=== PATIENT | female | born 1980 | race Caucasian/White ===

== ENCOUNTER 2021-05-17 11:21 | Emergency (ER) | payer BC, SELFPAY ==
--- NOTE | 2021-05-17 11:30 | ED.GENADULT ---
HPI - General Adult General Chief complaint: Back Pain/Injury Stated complaint: back pain Time Seen by Provider: 05/17/21 11:30 Source: patient Mode of arrival: ambulatory Limitations: no limitations History of Present Illness HPI narrative: 41-year-old female patient presents to the [facility] with complaints of lower back pain that started yesterday. Patient states that she was just walking around the house picking up something bending over at times and felt a little soreness to the back however got increasingly worse yesterday. Patient states she did take 600 mg of Advil yesterday afternoon and again 800 mg of Advil last night which she does not feel like is helping. Patient states today the pain is increasingly worse to the point that she has to have her help her up to a standing position. Patient denies any specific injury or falling. Patient states she has had back issues before including sciatica and bulging disc. Patient denies any numbness or tingling down the legs and denies any loss of bowel or bladder control. Related Data Allergies Allergy/AdvReac Type Severity Reaction Status Date / Time No Known Allergies Allergy Verified 05/17/21 11:31 Review of Systems Review of Systems: CONSTITUTIONAL: Denies fever, chills, or sweats. EYES: Denies visual changes, redness, or discharge. ENT: Denies rhinorrhea, congestion, sore throat, or otalgia. CARDIOVASCULAR: Denies chest pain, palpitations, or edema. RESPIRATORY: Denies cough or dyspnea. GASTROINTESTINAL: Denies abdominal pain, nausea, vomiting, or diarrhea. GENITOURINARY: Denies dysuria or hematuria. SKIN: Denies rash or itching. MUSCULOSKELETAL: Positive low back pain, denies joint pain, or myalgia. NEUROLOGIC: Denies headache, numbness, or weakness. PSYCHIATRIC: Denies anxiety or depression. [facility] Past Medical History Medical History (Updated 05/17/21 @ 11:53 by MARY Garza) Diabetes mellitus HLD (hyperlipidemia) Hypothyroidism Surgical History Surgical History Hx of cholecystectomy (~2012) Family History Family History Mother Cerebrovascular accident Family history of diabetes mellitus in first degree relative Family history of dementia Sibling Family history of diabetes mellitus in first degree relative Other Diabetes mellitus Family history of gallbladder disease Social History Social History Years smoked: 20 Tobacco type: cigarettes Alcohol intake: current Alcohol use details: social Substance use: never Gender identity (if verbalized by the patient): Female Comments At the time of my signature I agree with nursing past medical history, surgical, social, and family history. There is no relevant family history pertinent to the presenting complaint. Exam Narrative: GENERAL: Well-appearing, well-nourished, and in no acute distress. HEAD: Normocephalic, atraumatic. EYES: PERRLA and EOMI. ENT: Nares clear, no rhinorrhea or epistaxis. Mucous membranes moist. NECK: Supple. No lymphadenopathy CHEST: Clear to auscultation. No respiratory distress. HEART: Regular rate and rhythm. No murmur heard. Normal peripheral pulses. ABDOMEN: Soft, nontender, nondistended, normal active bowel sounds. EXTREMITIES: Normal range of motion. No edema. BACK: Patient is able to ambulated without assistance. Pt is seated on the stretcher in no obvouis distress. No surface trauma noted. muscle tenderness to Palpation of the lumbar spine on bilateral sides and into the sciatic nerve area on bilateral sides. No spasm or mass. No step-offs or deformity noted to the cervical, thoracic or lumbar spine to firm Palpation at the midline. No CVA tenderness to percussion. No saddle anesthesia. ROM: able to stand erect. Normal flexion, extension, Lateral bending and rotation without limit
[2021-05-17 11:35] VITALS: BP 138/72; PULSE 92; RESP 20; TEMP 36.1; O2SAT 100
== END 2021-05-17 12:00 | disposition home or self-care (01) ==
PROVIDERS: Emergency Provider Nurse Practitioner Family; PCP Family Medicine
DX: M54.31 Sciatica, right side (principal); F17.210 Nicotine dependence, cigarettes, uncomplicated; E11.9 Type 2 diabetes mellitus without complications; E78.5 Hyperlipidemia, unspecified; E03.9 Hypothyroidism, unspecified
CPT/HCPCS: 99213; G0463

== ENCOUNTER 2022-04-15 16:25 | Outpatient (CLI) | payer BC, SELFPAY ==
--- NOTE | ~2022-04-15 | MM_ITS ---
EXAMINATION: MM screening don BI w errol HISTORY: Screening TECHNIQUE: Craniocaudal and mediolateral oblique 3-D tomosynthesis images were obtained and synthetic 2-D images were generated. CAD analysis was submitted and interpreted. COMPARISON: No prior mammogram is available for comparison at this institution. BREAST PARENCHYMAL COMPOSITION: There are scattered areas of fibroglandular density. FINDINGS: There are no suspicious masses, calcifications or architectural distortion in the right dale ast to suggest malignancy. There is a mass in the subareolar location of the left breast measuring ap proximately 12 mm maximum dimension. IMPRESSION: 1. Left breast mass in the subareolar location. 2. Additional mammographic views and possible breast ultrasound are recommended. BI-RADS Category 0: Incomplete: Needs additional imaging evaluation. Reviewed, dictated and finalized at location A. IMPRESSION: 1. Left breast mass in the subareolar location. 2. Additional mammographic views and possible breast ultrasound are recommended . BI-RADS Category 0: Incomplete: Needs additional imaging evaluation.
== END 2022-04-15 16:26 | disposition home or self-care (01) ==
PROVIDERS: PCP Family Medicine; Visit Provider Obstetrics & Gynecology
DX: Z12.31 Encounter for screening mammogram for malignant neoplasm of breast (principal); R92.8 Other abnormal and inconclusive findings on diagnostic imaging of breast
CPT/HCPCS: 77063; 77067

== ENCOUNTER 2022-05-07 13:41 | Outpatient (CLI) | payer BC, SELFPAY ==
--- NOTE | ~2022-05-07 | MMUS_ITS ---
EXAMINATION: MM diagnostic don LT w errol, US breast LT limited HISTORY: Approximately 12 mm subareolar mass reported on 04/15/2022 screening mammogram TECHNIQUE: Additional 3-D tomosynthesis images of the left breast were performed and synthetic 2-D im ages were generated. CAD analysis was submitted and interpreted. High resolution targeted subareolar left breast ultrasound was performed. COMPARISON: 04/15/2022 bilateral screening mammogram FINDINGS: MAMMOGRAPHIC FINDINGS: There is a circumscribed approximately 6 x 10 mm low-density opacity in the upper subareolar area of the left breast at 12:00. ULTRASOUND: There is a 4 x 9 x 10 mm sonolucency in the subareolar area, consistent with simple cyst. IMPRESSION: 1. Benign subareolar 1 cm cyst 2. Routine mammographic screening is recommended BI-RADS Category 2: Benign finding(s). Reviewed, dictated and finalized at location A. IMPRESSION: 1. Benign subareolar 1 cm cyst 2. Routine mammographic screening is recommended BI-RADS Category 2: Benign finding(s).
== END 2022-05-07 13:42 | disposition home or self-care (01) ==
PROVIDERS: PCP Family Medicine; Visit Provider Obstetrics & Gynecology
DX: R92.8 Other abnormal and inconclusive findings on diagnostic imaging of breast (principal)
CPT/HCPCS: 76642; 77061; 77065; G0279

== ENCOUNTER 2024-01-30 12:39 | Outpatient (CLI) | payer BC, SELFPAY ==
--- NOTE | ~2024-01-30 | XR_ITS ---
Lumbosacral Spine: AP, oblique, and lateral views Clinical History: Pain Findings: The normal lordotic curve is maintained. The vertebral bodies and posterior elements are i ntact. The intervertebral disc spaces are preserved. The sacroiliac joints are normally outlined. Impression: No significant abnormality. Reviewed, dictated and finalized at [facility]. Impression: No significant abnormality.
--- NOTE | 2024-01-30 13:04 | ECG_ITS ---
Test Date: 2024-01-30 13:10:46 Measurements Intervals [place] Rate: 87 P: -2 VA: 139 QRS: -13 QRSD: 97 T: 10 QT: 374 QTc: 451 Interpretive Statements SINUS RHYTHM No previous ECG available for comparison Electronically Signed On 01-31-2024 10:43:08 CDT by Vazquez Waggoner M.D.
== END 2024-01-30 12:40 | disposition home or self-care (01) ==
PROVIDERS: PCP Family Medicine; Visit Provider Physician Assistant Medical
DX: E03.9 Hypothyroidism, unspecified (principal); E78.5 Hyperlipidemia, unspecified; E11.9 Type 2 diabetes mellitus without complications
CPT/HCPCS: 72110; 93005

== ENCOUNTER 2025-07-26 18:19 | Emergency (ER) | payer BC, SELFPAY ==
--- NOTE | ~2025-07-26 | XR_ITS ---
XR knee LT 3V 07/26/2025 18:44 Indication: Left knee pain Procedure: 3 views left knee Comparison: No prior studies for comparison. Findings: Osteopenia. Unfused tibial tuberosity. No acute fracture, subluxation or dislocation. No significant joint effusion. No foreign bodies. Impression: 1: No acute fracture. Reviewed, dictated and finalized at location I. EATION COORDINATOR Impression: 1: No acute fracture.
--- NOTE | ~2025-07-26 | XR_ITS ---
XR wrist RT min 3V 07/26/2025 18:44 Indication: Right wrist pain Procedure: 4 views right wrist Comparison: No prior studies for comparison. Findings: There is an ulnar styloid avulsion fracture, age indeterminate. No other fracture. Anatomic alignment. No soft tissue abnormality. No foreign bodies. Impression: 1: Age-indeterminate avulsion fracture ulnar styloid. Correlate for point tenderness. Reviewed, dictated and finalized at location I. ET STRINGER Impression: 1: Age-indeterminate avulsion fracture ulnar styloid. Correlate for point tende rness.
[2025-07-26 18:32] VITALS: BP 128/81; PULSE 65; RESP 16; TEMP 36.5; O2SAT 98
--- NOTE | 2025-07-26 19:41 | ED.FALL ---
HPI - Fall General Chief Complaint: Extremity Injury, Lower Stated Complaint: INJURED L KNEE Time Seen by Provider: 07/26/25 19:25 Source: patient and RN notes reviewed Mode of arrival: ambulatory Limitations: no limitations History of Present Illness HPI Narrative: 45-year-old female presents Express Care complaining of fall approximately 5 days ago. Patient says she slipped and fell on the ice. Patient is in her head or any loss of consciousness. Patient denies any neck pain or back pain. Patient is complaining of left knee pain and right wrist pain. Patient denies any dizziness, lightheadedness, nausea vomiting, chest pain, breathing problems, vision changes, double vision, blurry vision, in her symptoms. Patient or a knee brace without relief. Patient is not taking any blood thinners. Patient does have a history of diabetes. Related Data Home Medications ?Medication ?Instructions ?Recorded ?Confirmed ?Last Taken ?Type Saccharomyces boulardii 250 mg 250 mg PO BID 09/13/24 01/07/25 Unknown History capsule (Daily Probiotic (S. boulardii)) cholecalciferol (vitamin D3) 125 125 mcg PO DAILY 09/13/24 01/07/25 Unknown History mcg (5,000 unit) capsule cyanocobalamin (vitamin B-12) 5,000 mcg sublingual DAILY 09/13/24 01/07/25 Unknown History 5,000 mcg/mL sublingual drops magnesium citrate,mag oxide 250 mg 500 mg PO DAILY 09/13/24 01/07/25 Unknown History capsule psyllium husk 3.4 gram/5.4 gram 1 tbsp PO DAILY 09/13/24 01/07/25 Unknown History oral powder (Metamucil) levothyroxine 100 mcg tablet mcg 07/26/25 Unknown History levothyroxine 112 mcg tablet mcg 07/26/25 Unknown History rosuvastatin 20 mg tablet mg 07/26/25 Unknown History terbinafine HCl 250 mg tablet mg 07/26/25 Unknown History tirzepatide 7.5 mg/0.5 mL mg subcut 07/26/25 Unknown History subcutaneous pen injector (Mounjaro) Allergies Allergy/AdvReac Type Severity Reaction Status Date / Time No Known Allergies Allergy Verified 07/26/25 18:34 Review of Systems Review of Systems: CONSTITUTIONAL: Denies fever, chills, or sweats. EYES: Denies visual changes, redness, or discharge. ENT: Denies rhinorrhea, congestion, sore throat, or otalgia. CARDIOVASCULAR: Denies chest pain, palpitations, dizziness, lightheadedness or edema. RESPIRATORY: Denies cough or dyspnea. GASTROINTESTINAL: Denies abdominal pain, nausea, vomiting, or diarrhea. GENITOURINARY: Denies dysuria or hematuria. SKIN: Denies rash, wound, or itching. MUSCULOSKELETAL: Denies back pain, joint pain, or myalgia. Positive for left knee injury and right wrist injury NEUROLOGIC: Denies headache, loss of consciousness, or weakness. PSYCHIATRIC: Denies anxiety or depression. All other systems reviewed are negative, except as documented in HPI. [facility] Past Medical History Medical History Gastroparesis Hypothyroidism HLD (hyperlipidemia) Diabetes mellitus Surgical History Surgical History Hx of cholecystectomy (~2012) Family History Family History Mother Cerebrovascular accident Family history of diabetes mellitus in first degree relative Family history of dementia Sibling Family history of diabetes mellitus in first degree relative Other Cervical cancer Lung cancer Other Diabetes mellitus Family history of gallbladder disease Social History Social History Smoking packs per day: 0.5 Smoking cigarettes per day: 10.0 Years smoked: 15 Smoking pack-years: 7.50 Smoking status: Former smoker Tobacco type: cigarettes Second hand tobacco smoke exposure: Yes Smoking end date: 02/21/22 Alcohol intake: current Alcohol use details: social Substance use: never Substance use type: does not use Lack of Transportation: No Lack of Food: Never True Current Housing: Decline to Answer Concerned About Future Housing: Decline to Answer Difficulty Paying Gas/Electric Bills: Decline to Answer Difficulty Paying for Meds: Decline to Answer Currently Unemployed: Decline to Answer Education: Decline to Answer Difficulty w/ Childcare or Family Care: Decline to Answer Living arrangements: with family Gender identity (if verbalized by the patient): Female Comments At the time of my signature, I reviewed and agree with the nursing past medical, surgical, social, and family history. There is no relevant family history pertinent to the patient complaint. Exam Narrative: GENERAL: This is a well-nourished, well-developed adult, in no apparent distress. They are non ill-appearing, nontoxic appearing. HEAD: normocephalic, atraumatic. EYES: Sclera clear/white. Vision is grossly intact. Conjunctiva normal. Extraocular movement intact. Pupils PERRLA EARS: External ears normal Hearing grossly intact. NOSE: External nose normal THROAT: Mucous membranes moist NECK: Neck supple CARDIOVASCULAR: Regular rate and rhythm RESPIRATORY: Respiratory rate normal, respiratory effort nonlabored, no respiratory distress NEURO: awake, alert, and oriented to person, place and time. There were no obvious focal neurologic abnormalities. EXTREMITIES: Left knee: No obvious deformity, injury, swelling, bruising, redness. Pain through full range of motion. No bony tenderness. Capillary refill less than 3 seconds. No valgus or varus laxity. Normal sensation. Neurovascular status intact distal injury. Right wrist: No obvious deformity, bruising, redness, swelling, or injury. Lateral rest tender to palpate. No point tenderness near the ulnar styloid. Her snuffbox tenderness. There is pain through full range of motion. Capillary refill less than 2 seconds. Sensation intact. Patient make a fist, thumbs-up sign, stop sign, okay sign. Right radial pulse 2 +and palpable. Radial, ulnar, median nerve distribution intact. Neurovascular status intact distally the injury. BACK: Nontender without deformity. Course Course Level of Care: Express Care Visit Vital Signs Vital signs: Vital Signs Temperature 97.7 F 07/26/25 18:32 Pulse Rate 65 07/26/25 18:32 Respiratory Rate 16 07/26/25 18:32 Blood Pressure 128/81 07/26/25 18:32 Pulse Oximetry 98 07/26/25 18:32 Temperature 97.7 F 07/26/25 18:32 Pulse Rate 65 07/26/25 18:32 Respiratory Rate 16 07/26/25 18:32 Blood Pressure 128/81 07/26/25 18:32 Pulse Oximetry 98 07/26/25 18:32 Procedures Orthopedic Splinting/Casting Injury #1: Splinting/Casting Date: 07/26/25 Splinting/Casting Time: 19:49 Side: right Upper Extremity Injury Location: wrist (Ulnar styloid) and hand (Scaphoid) Splint: customized in ED Pre-Formed: sling OCL: other (Thumb spica sugar-tong) Pre-Procedure Neuro Vascular Exam: normal Post-Procedure Neuro Vascular Exam: normal Additional Comments: Patient tolerated procedure well MDM MDM Narrative Medical decision making narrative: X-ray of right wrist shows a avulsion fracture age indeterminate to the ulna styloid. Otherwise no other acute findings. X-ray of left knee negative for any acute fractures or findings. Patient also has snuffbox tenderness., there is clinical concern for scaphoid fracture given these findings. There is no focal tenderness near the ulnar styloid area. Will place patient in a sugar-tong thumb spica splint have follow-up with ortho for further evaluation. Patient given Rickey wrap for knee. Discussed supportive care and rice therapy. Discussed physical exam findings. Advised supportive measures and signs/symptoms to go to the ER. Pt is appropriate for outpt treatment and f/u. Differential Diagnosis Differential Diagnosis: Wrist fracture, wrist sprain, wrist contusion, scaphoid fracture, the fracture, knee sprain company contusion Imaging Data Radiologist's impression: ITS Impressions Knee X-Ray 07/26/25 18:50 Impression: 1: No acute fracture. Wrist X-Ray 07/26/25 18:51 Impression: 1: Age-indeterminate avulsion fracture ulnar styloid. Correlate for point tenderness. Critical Care Time Critical Care Time Critical Care Time: No Discharge Plan Discharge Clinical Impression: Tenderness of anatomical snuffbox Fracture of ulnar styloid Qualifiers: Encounter type: initial encounter Fracture type: closed Fracture alignment: nondisplaced Laterality: right Qualified Code(s): S52.614A - Nondisplaced fracture of right ulna styloid process, initial encounter for closed fracture Injury of knee, left Qualifiers: Encounter type: initial encounter Qualified Code(s): S89.92XA - Unspecified injury of left lower leg, initial encounter Fall Qualifiers: Encounter type: initial encounter Qualified Code(s): W19.XXXA - Unspecified fall, initial encounter Patient Disposition: Home Condition: Stable Instructions: Knee Sprain (ED), Wrist Fracture in Adults (ED), Scaphoid Fracture (ED) Additional Instructions: The x-ray of your right wrist shows a avulsion fracture of the ulna styloid, could be old, given the tenderness near scaphoid bone going to treat as if you have a scaphoid fracture as well. Wear the splint at all times, keep it dry, do not remove it, do not get it wet. Please cover while showering. Use the sling as needed for comfort. You may take ibuprofen 600 mg to 800 mg every 6-8 hours. Do not exceed more than 800 mg of ibuprofen per dose. Do not exceed more than 3200 mg ibuprofen in a day. You may take up to 1000 mg Tylenol every 6-8 hours. Do not exceed 1000 mg per dose, do exceed more than 4000 mg of Tylenol in a day. Follow-up with orthopedist in 3-5 days for further evaluation management. Return to the ER for any serious concerns. Patient Language: Sri [place]an Prescriptions: No Action levothyroxine 100 mcg tablet terbinafine HCl 250 mg tablet levothyroxine 112 mcg tablet rosuvastatin 20 mg tablet Mounjaro 7.5 mg/0.5 mL pen injector SUBCUT insulin glargine [Basaglar KwikPen U-100 Insulin] 100 unit/mL (3 mL) insulin pen 32 unit subcut QAM Qty: 30 6RF insulin aspart U-100 [Novolog FlexPen U-100 Insulin] 100 unit/mL (3 mL) insulin pen 6 unit subcut TID Qty: 15 1RF Rx Instructions: before meals (DME) lancets [Accu-Chek Softclix Lancets] Misc See Rx Instructions .Route Qty: 100 0RF Rx Instructions: Check blood sugar daily gabapentin 300 mg capsule 300 mg PO QHS Qty: 30 0RF omeprazole 40 mg capsule,delayed release(DR/EC) 40 mg PO DAILY Qty: 30 1RF (DME) blood-glucose meter [Accu-Chek Guide Glucose Meter] Misc See Rx Instructions .Route Qty: 1 0RF Rx Instructions: Check blood sugar daily (DME) Accu-Chek SmartView Test Strip Strip See Rx Instructions .Route Qty: 100 6RF Rx Instructions: check blood sugar three times daily (DME) blood-glucose meter [Accu-Chek Guide Glucose Meter] Misc See Rx Instructions .Route Qty: 1 0RF Rx Instructions: Check blood glucose 5 x daily (DME) Accu-Chek Guide test strips Strip See Rx Instructions .Route Qty: 100 3RF Rx Instructions: Check blood glucose 5 x daily cholecalciferol (vitamin D3) 125 mcg (5,000 unit) capsule 125 mcg PO DAILY Saccharomyces boulardii [Daily Probiotic (S. boulardii)] 250 mg capsule 250 mg PO BID cyanocobalamin (vitamin B-12) 5,000 mcg/mL drops 5,000 mcg sublingual DAILY Metamucil 3.4 gram/5.4 gram powder 1 tbsp PO DAILY Rx Instructions: mix into at least 8 oz of water or juice before administering magnesium citrate,mag oxide 250 mg capsule 500 mg PO DAILY ergocalciferol (vitamin D2) 1,250 mcg (50,000 unit) capsule 1,250 mcg PO WEEKLY Qty: 14 3RF (DME) pen needle, diabetic [Comfort EZ Pen Preston] 31 gauge x 3/16 needle See Rx Instructions .Route Qty: 400 3RF Rx Instructions: As directed QID ondansetron HCl 8 mg tablet 8 mg PO Q8H PRN (Reason: nausea and vomiting) Qty: 20 0RF duloxetine 30 mg capsule,delayed release(DR/EC) 30 mg PO DAILY Qty: 30 3RF Rx Instructions: Take with evening meal. ferrous sulfate 325 mg (65 mg iron) tablet 325 mg PO DAILY Qty: 90 3RF (DME) FreeStyle Lazara 3 Plus Sensor Device See Rx Instructions .Route Qty: 2 12RF Rx Instructions: USE QID dextroamphetamine-amphetamine [Adderall XR] 30 mg capsule,extended release 24hr 30 mg PO DAILY Qty: 30 0RF Follow-up/Referrals: Chris Greenwood MD [Physician, Plastic Surgery] - 3 Days Clinical Impression: Tenderness of anatomical snuffbox; Fracture of ulnar styloid Clay Montes MD [Physician, Orthopedics] - 3 Days Clinical Impression: Tenderness of anatomical snuffbox; Fracture of ulnar styloid UNKNOWN,DOCTOR [Primary Care Provider] Time of Disposition: 19:37
== END 2025-07-26 20:03 | disposition home or self-care (01) ==
DX: S52.614A Nondisplaced fracture of right ulna styloid process, initial encounter for closed fracture (principal); W00.9XXA Unspecified fall due to ice and snow, initial encounter; S89.92XA Unspecified injury of left lower leg, initial encounter; M79.641 Pain in right hand; E03.9 Hypothyroidism, unspecified; E11.43 Type 2 diabetes mellitus with diabetic autonomic (poly)neuropathy; K31.84 Gastroparesis; Z79.4 Long term (current) use of insulin; Z79.85 Long-term (current) use of injectable non-insulin antidiabetic drugs; E78.5 Hyperlipidemia, unspecified; Z87.891 Personal history of nicotine dependence
CPT/HCPCS: 29125; 73110; 73562; 99214; A4565; G0463

== ENCOUNTER 2025-08-12 13:53 | Outpatient (CLI) | payer BC, SELFPAY ==
--- OUTSIDE RECORDS SUMMARY | 2024-12-13 02:30 | XMS_ITS ---
Author Organization [employer] Address [address] [facility] 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 Steel Fixer Name Role Phone Kendra Thurston MD Primary Care Provider Jus Gregorio Unavailable [phone] REASON FOR VISIT 5ft9 211 Diarrhea abd pain Encounters Encounter Location Date Provider Diagnosis [facility] [address] [place] [address] 12/13/2024 Jus Dee Plan Of Treatment No Information Progress Notes * Naty WOODRUFF MDOB:10/1979 (45 yo F)Acc No.[id number]:12/13/2024 Patient: Tania Naty SHARMA Provider: Elaine Dee MD :1980 A ge:44 Y S ex:Female Date:12/13/2024 Address:[address] [facility] Pcp:Kendra Thurston MD Subjective: * Chief Complaints: * 1 . 5ft9 211 Diarrhea abd pain. * Medical History: Objective: * Vitals: Assessment: Plan: * Treatment: * * Electronic signature of Ally Dee MD on 08/12/2025 at 03:41 PM CERTIFIED MEDICAL ASST Sign off status: Pending * Provider: Elaine Dee MD Date: 0 12/13/2024 Generated for Hina zapien/Ruy/Lelo on: 1 10/13/2024 03:41 PM CERTIFIED MEDICAL ASST
--- OUTSIDE RECORDS SUMMARY | 2024-12-13 07:30 | XMS_ITS ---
Author Organization [employer] [facility] Address [address] [facility] [address] [place] [address] Care Team Providers Care Employment Educational Coord Name Role Phone Kendra Thurston MD Primary Care Provider Jus Gregorio Unavailable [phone] REASON FOR VISIT 5ft9 211 Diarrhea/abd pain/Dysphagia Encounters Encounter Location Date Provider Diagnosis [facility] [address] [place] [address] 12/13/2024 Jus Dee Plan Of Treatment No Information Progress Notes * Naty WOODRUFF MDOB:10/1979 (45 yo F)Acc No.[id number]:12/13/2024 Patient: Tania Naty SHARMA Provider: Elaine Dee MD :1980 A ge:44 Y S ex:Female Date:12/13/2024 Address:[facility] [facility] Pcp:Kendra Thurston MD Subjective: * Chief Complaints: * 1 . 5ft9 211 Diarrhea/abd pain/Dysphagia. 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
--- NOTE | ~2025-08-12 | XR_ITS ---
EXAMINATION: XR hand RT min 3V DATE: 08/12/2025 14:07 INDICATION: Right hand pain TECHNIQUE: Posteroanterior, oblique and lateral views of the right hand were obtained. COMPARISON: Right wrist radiographs dated 07/26/2025 FINDINGS: Fiberglas splinting along the volar and radial aspects of the right hand, wrist and visualized distal forearm. Unchanged 2 mm ulnar minus variance. Alignment is otherwise normal. Tiny calcific density near the tip of the ulnar styloid process which on the prior study. Relatively round and without acute appearing donor site and would favor either a chronic tiny nonunited avulsion fracture fragment or heterotopic ossification related to chronic soft tissue injury. No other lesions suspicious for fracture identified. Joint spaces are normal. IMPRESSION: 1. Unchanged tiny ossific density near the tip the ulnar styloid process consistent with avulsion fracture, more likely chronic than acute. Differential would include heterotopic ossicle related to chronic soft tissue injury. Reviewed, dictated and finalized at location A. [facility]CR[facility]ER IMPRESSION: 1. Unchanged tiny ossific density near the tip the ulnar styloid process consis tent with avulsion fracture, more likely chronic than acute. Differential would include heterotopic ossicle related to chronic soft tissue injury.
--- OUTSIDE RECORDS SUMMARY | 2025-08-12 15:41 | XMS_ITS | Clinical Summary ---
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
--- OUTSIDE RECORDS SUMMARY | 2025-08-12 15:41 | XMS_ITS | Encounter Summary ---
Author Organization [facility] Address [address] [place] [address] Phone Care Team Providers Care Chaplain Name Role Phone Unknown, Notinfile Primary Care Provider Unavail able Kendra Thurston MD Primary Care Provider [phone] Encounter Details Date Type Department Care Team (Latest Contact Info) Description 01/30/2024 Orders Only [facility] Tere Snider RN Social History Tobacco Use Types Packs/Day Years Used Date Smoking Tobacco: Smoker, Current Status Unknown Cigarettes Alcohol Use Standard Drinks/Week Comments Yes 0 (1 standard drink = 0.6 oz pur e alcohol) Socially Comments Unknown Sex and Gender Information Value Date Recorded Sex Assigned at Not on file 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 Gender Identity Not on file Sexual Orientation Not on file documented as of this encounter Plan of Treatment Not on file documented as of this encounter Procedures Procedure Name Priority Date/Time Associated Diagnosis Comments CARDIOLOGY DOCUMENT SCAN 01/30/2024 documented in this encounter Results * Cardiology Document Scan (01/30/2024) Anatomical Region Laterality Modality Other Tere Snider RN [facility] HERLINDA Johnson Result - Final documented in this encounter Visit Diagnoses Not on filedocumented in this encounter Care Teams Chaplain Relationship Specialty Start Date End Date Unknown, Notinfroxana PCP - General 01/09/18 03/08/24 Kendra Thurston MD PCP - General Family Medicine 03/09/24 documented as of this encounter
--- OUTSIDE RECORDS SUMMARY | 2025-08-12 15:42 | XMS_ITS | Clinical Summary ---
Author Organization [facility] [employer] [facility] Address [address] [place] [address] Care Team Providers Care Psych Np Name Role Phone Yony Hoff MD Primary Care Provider [phone] Source Comments [facility] [employer] [facility],non-owned Affiliates and Associated Physician Practices is amultiple site organization consisting of ambulatory clinics and hospital sitesin [place], [place], [place] and [place]. This disclosure is being madepursuant to the Care Everywhere program and may not contain all information available regarding this patient. Last updated 18.[facility] Allergies No known active allergies Medications * Be aware that medications may not be up to date on this document. Alwaysverify current medications with the patient. levothyroxine (SYNTHROID) 75 MCG tablet Take 75 mcg by mouth daily before breakfast. Active ibuprofen (MOTRIN) 600 MG tablet Take 1 Tab by mouth every 6 hours. 120 Tab 0 07/19/2012 Active metFORMIN (GLUCOPHAGE) 1000 MG tablet Take 1 Tab by mouth 2 times daily with morning and evening meal. 60 Tab 1 07/19/2012 Active Vit-Fe Fumarate-FA ( VITAMIN WITH IRON) tablet Take 1 Tab by mouth daily with breakfast. 30 Tab 11 07/19/2012 Active domperidone (MOTILIUM) 10 mg tablet Take 10 mg by mouth 3 times daily. Active oxycodone-aceta minophen (PERCOCET) 5-325 MG tablet Take 1 Tab by mouth every 4 hours as needed for Pain. 15 Tab 0 09/27/2012 Active ondansetron (ZOFRAN) 4 MG tablet Take 1 Tab by mouth every 4 hours as needed for Nausea/Vomit ing. 10 Tab 0 09/27/2012 Active famotidine (PEPCID) 20 MG tablet Take 1 Tab by mouth at bedtime. 30 Tab 0 09/27/2012 Active Active Problems Problem Noted Date Diagnosed Date Research study patient 06/26/2012 Overview (06/26/2012): This patient is consented and enrolled in the Umbilical Cord Milking Research study. If this patient delivers between 24 and 27 6/7 weeks gestation, the OB chief will supervise the opening of randomization packet in the infant resuscitation room (by the telephone). If urgent concerns, please contact Dr. Isaac Chan, study PI, at anytime 14/03. Supervision of high-risk 06/15/2012 Overview (07/12/2012): Dating by 8wk doc u/s (MEDIA) A+/I/-/-; HIV NR H/H: 12.6/37.1 GBS: POS per ACOG Obesity Type 2 diabetes mellitus Overview (06/15/2012): On metformin 1000mg BID Insulin started 06/15 PCOS (polycystic ovarian syndrome) Overview (06/15/2012): Was on spironolactone (for hirsutism) and phenermine (for weight loss) at beginning of Hypothyroid Overview (06/15/2012): On 75mcg qd Immunizations Immunization Administration Dates Next Due INFLUENZA VACCINE 07/12/2012 PNEUMOCOCCAL PPSV23 07/19/2012 TDAP (7yrs+) 07/18/2012 Family History Medical History Relation Name Comments Diabetes Maternal Grandfather Diabetes Maternal Grandmother Stroke Maternal Grandmother Diabetes Mother Cancer Paternal Grandmother Diabetes Sister Relation Name Status Comments Maternal Grandfather Maternal Grandmother Mother Paternal Grandmother Sister Social History Tobacco Use Types Packs/Day Years Used Date Smoking Tobacco: Former Cigarettes 12 0 02/11/2000 - 02/11/2012 Tobacco Cessation:Counseling Given: Yes Comments:quit when found out Alcohol Use Standard Drinks/Week Comments No 0 (1 standard drink = 0.6 oz pur e alcohol) Comments Unknown Sex and Gender Information Value Date Recorded Sex Assigned at Not on file 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 Gender Identity Not on file Sexual Orientation Not on file Last Filed Vital Signs Vital Sign Reading Time Taken Comments Blood Pressure 122/70 09/25/2020 6:36 PM SWATCH FOLDER Pulse 80 09/25/2020 6:36 PM SWATCH FOLDER Temperature 36.8 C (98.3 F) 09/25/2020 6:36 PM SWATCH FOLDER Respiratory Rate 20 09/25/2020 6:36 PM SWATCH FOLDER Oxygen Saturation 99% 09/25/2020 6:36 PM SWATCH FOLDER Inhaled Oxygen Concentration - - Weight 107 kg (236 lb) 09/26/2012 10:48 PM SWATCH FOLDER Height 175.3 cm (5' 9) 09/26/2012 10:48 PM SWATCH FOLDER Body Mass Index 34.85 09/26/2012 10:48 PM SWATCH FOLDER Plan of Treatment Health Maintenance Due Date Last Done Comments COLOGUARD (AGES 45-75) - COL ON CA SCREENING 1980 COLON MONITORING 1980 COLONOSCOPY - COLON CA SCREENING 1980 CT COLONOGRAPHY - COLON CA SCREENING 1980 Colorectal Cancer Screening 1980 FIT - COLON CA SCREENING 1980 FLEX SIG - COLON CA SCREENING 1980 MAMMOGRAM 1980 HIV SCREENING 1995 HEPATITIS C SCREENING 03/20/1998 HEPATITIS B VACCINE (1 of 3 - 19+ 3-dose series) 1999 HPV VACCINE (1 - 3-dose SCDM series) 2007 DIABETES-SERUM CREATININE 09/26/20132012, 07/16/2012, 06/15/2012 DIABETES-FOOT EXAM WITH MONOFILAMENT 09/25/2020 DIABETES-HGB A1C 09/25/2020 06/15/2012 DTAP/TDAP/TD VACCINES (2 - T d or Tdap) 07/18/2022 07/18/2012 DEPRESSION SCREENING 08/22/2024 DIABETES - URINE PROTEIN SCREENING 08/22/2024 COVID-19 VACCINE ( - 2024-2 6 season) 2025 INFLUENZA VACCINE (#1) 2025 07/12/2012 ZOSTER VACCINE (1 of 2) 2030 PNEUMOCOCCAL VACCINE Aged Out 07/19/2012 No long er eligible based on patient's age to complete this topic HIB VACCINE Aged Out No longer eligi ble based on patient's age to complete this topic MENINGOCOCCAL (Group B) VACCINE SHARED DECISION-MAKING Aged Out No longer eligible based on patient's age to complete this topic MENINGOCOCCAL GROUPS A/C/Y/W VACCINE Aged Out No longer eligible b ased on patient's age to complete this topic Procedures Procedure Name Priority Date/Time Associated Diagnosis Comments COMPREHENSIVE METABOLIC PANEL STAT 09/26/2012 11:17 PM SWATCH FOLDER HEMOGLOBIN A1C Today 06/15/2012 11:59 PM CDT from Last 3 Months or Most Recently Relevant to Health Maintenance Results * (ABNORMAL) COMPREHENSIVE METABOLIC PANEL (09/26/2012 11:17 PM SWATCH FOLDER) Glucose 134(H) 74 - 106 mg/dL 09/26/2012 11:39 PM [facility] Sodium 139 136 - 145 mmol/L 09/26/2012 11:39 PM [facility] Potassium 3.7 3.5 - 5.1 mmol/L 09/26/2012 11:39 PM [facility] Chloride 104 98 - 107 mmol/L 09/26/2012 11:39 PM [facility] CO2 27 22 - 31 mmol/L 09/26/2012 11:39 PM [facility] Calcium 8.6 8.5 - 10.1 mg/dL 09/26/2012 11:39 PM [facility] Anion Gap 8 5 - 15 mmol/L 09/26/2012 11:39 PM [facility] BUN 16 7 - 21 mg/dL 09/26/2012 11:39 PM [facility] Creatinine 0.70 0.50 - 1.30 mg/dL 09/26/2012 11:39 PM [facility] eGFR by MDRD >60 >60 ml/min/1.7 3m2 09/26/2012 11:39 PM [facility] eGFR by MDRD >60 >60 ml/min/1.7 3m2 09/26/2012 11:39 PM [facility] Alkaline Phosphatase 67 38 - 126 U/L 09/26/2012 11:39 PM [facility] ALT 37 12 - 78 U/L 09/26/2012 11:39 PM [facility] AST 14 5 - 40 U/L 09/26/2012 11:39 PM [facility] Protein Total 7.8 6.4 - 8.2 gm/dL 09/26/2012 11:39 PM [facility] Albumin 3.5 3.4 - 5.0 gm/dL 09/26/2012 11:39 PM [facility] Bilirubin Total 0.2 0.2 - 1.0 mg/dL 09/26/2012 11:39 PM [facility] Blood specimen (specimen) BLOOD SPECIMEN / Unknown 09/26/2012 11:17 PM SWATCH FOLDER 09/26/2012 11:23 PM SWATCH FOLDER Manish Myers DO LAB - CHEMISTRY ORDERABLES Fin al Result Performing Organization Address City/[facility] Co de Phone Number [facility] [address] [place] [address] * HEMOGLOBIN A1C (06/15/2012 11:59 PM CDT) Hemoglobin A1c 5.3 3.9 - 6.1 % [facility] Estimated Average Glucose 105.4 mg/dl [facility] Blood specimen (specimen) BLOOD SPECIMEN WITH EDTA / Unknown 06/15/2012 11:59 PM CDT 06/16/2012 12:27 AM CDT Kathleen Ward MD LAB - CHEMISTRY ORDERABLES Veena l Result [facility] [address] [place] [address] from Last 3 Months or Most Recently Relevant to Health Maintenance Insurance [facility] Advance Directives * FULL RESUSCITATION (Latest Code Status on File) Date Activated Date Inactivated Comments 07/16/2012 10:16 PM 07/19/2012 5:38 PM * FULL RESUSCITATION Date Activated Date Inactivated Comments 06/15/2012 9:42 PM 07/02/2012 5:20 PM Care Teams Psych Np Relationship Specialty Start Date End Date Yony Hoff MD [address] [place] [address] PCP - General 06/15/12
--- OUTSIDE RECORDS SUMMARY | 2025-08-12 15:42 | XMS_ITS | Patient Health Record ---
Author Organization [employer] Address [address] [facility]. [address] [place] [address] Care Team Providers Care Protocol Officer Name Role Phone Kendra Thurston MD Primary Care Provider UnavailJus Allen Unavailable [phone] Thais Richey Unavailable [phone] Allergies No Known Allergies Results Component Value Reference Range Notes CBC With Differential/Platel et Reviewed date:12/05/2024 05:14:20 PM Interpretation: Performing Lab:[facility] [place], [address] [facility], [place], Phone - [phone], Director - Ricantonia Notes/Report: WBC 5.7 3.4-10.8 x10E3/uL RBC 4.14 3.77-5.28 x10E6/uL Hemoglobin 10.6 11.1-15.9 g/dL Hematocrit 33.8 34.0-46.6 % MCV 82 79-97 fL MCH 25.6 26.6-33.0 pg MCHC 31.4 31.5-35.7 g/dL RDW 14.7 11.7-15.4 % Platelets 248 150-450 x10E3/uL Neutrophils 62 Not Estab. % Lymphs 25 Not Estab. % Monocytes 9 Not Estab. % Eos 3 Not Estab. % Basos 1 Not Estab. % Neutrophils (Absolute) 3.5 1.4-7.0 x10E3/uL Lymphs (Absolute) 1.4 0.7-3.1 x10E3/uL Monocytes(Absolute) 0.5 0.1-0.9 x10E3/uL Eos (Absolute) 0.2 0.0-0.4 x10E3/uL Baso (Absolute) 0.0 0.0-0.2 x10E3/uL Immature Granulocytes 0 Not Estab. % Immature Grans (Abs) 0.0 0.0-0.1 x10E3/uL CRP Reviewed date:12/05/2024 05:14:20 PM Interpretation: Performing Lab:[facility] [place], [address] [facility], Phone - [phone], Director - Evie Notes/Report: C-Reactive Protein, Quant 16 0-10 mg/L Pathology Report Reviewed date:02/06/2025 09:37:30 PM Interpretation: Performing Lab: Notes/Report: DIAGNOSES A. Second part of Duodenum , Biopsy: -Enteric mucosa with no diagnostic abnormality. -Normal villous architecture; no evidence of Celiac sprue. -Alcian blue/PAS stain to identify gastric foveolar metaplasia and Whipple's disease is negative; no parasites are seen. -Negative for dysplasia and malignancy. B. Gastric Antrum , Biopsy: -Gastric antral type mucosa with intestinal metaplasia (complete and incomplete types). -Gastric body type mucosa with no diagnostic abnormality. -Alcian Blue/PAS stain confirms intestinal metaplasia. -Immunohistochemical stain is negative for Helicobacter pylori organisms.- Negative for dysplasia and malignancy. C. Proximal Colon , Biopsy: -Colonic mucosa with no diagnostic abnormality. -No evidence of chronic or active colitis, including lymphocytic and collagenous colitis. -Negative for dysplasia or malignancy. D. Distal Colon , Biopsy: -Colonic mucosa with no diagnostic abnormality. -No evidence of chronic or active colitis, including lymphocytic and collagenous colitis. -Negative for dysplasia or malignancy. E. Descending Colon Polyp, Biopsy: -Tubular adenoma. CLINICAL HISTORY Epigastric abdominal pain. Change in bowel habits. GROSSING DESCRIPTION A. The specimen(s) are received in a Formalin-filled container labeled with the patients name and designated Second part of Duodenum Biopsy. It contains multiple Luo fragments ranging from 2mm x 2mm x 1mm to 3mm x 2mm x 1mm. The specimen was submitted entirely in 1 cassette(s). B. The specimen(s) are received in a Formalin-filled container labeled with the patients name and designated Gastric Antrum Biopsy. It contains multiple Luo fragments ranging from 2mm x 2mm x 1mm to 4mm x 2mm x 1mm. The specimen was submitted entirely in 1 cassette(s). C. The specimen(s) are received in a Formalin-filled container labeled with the patients name and designated Proximal Colon Biopsy. It contains multiple Luo fragments ranging from 1mm x 1mm x 1mm to 4mm x 2mm x 1mm. The specimen was submitted entirely in 1 cassette(s). D. The specimen(s) are received in a Formalin-filled container labeled with the patients name and designated Distal Colon Biopsy. It contains 2 Luo fragment(s) of tissue that measure 2mm x 2mm x 1mm, 3mm x 2mm x 1mm . The specimen was submitted entirely in 1 cassette(s). E. The specimen(s) are received in a Formalin-filled container labeled with the patients name and designated Descending Colon Polyp Biopsy. It contains multiple Luo fragments ranging from 2mm x 2mm x 1mm to 4mm x 2mm x 1mm. The specimen was submitted entirely in 1 cassette(s). MICROSCOPIC DESCRIPTION Complete 100 microscopic examination is performed. The findings are included in the diagnosis rendered. Specimens A, B, C, D, and E were evaluated with H&E stain. Specimens A and B were evaluated with Alcian Blue PAS (APS) stain. Specimen B was evaluated with Helicobacter Pylori immunohistochemistry stain with adequate positive controls. Textual Pathology Report SEE NOTES CMP: COMPLETE METABOLIC PANE L Reviewed date:12/05/2024 05:14:20 PM Interpretation: Performing Lab:[facility], [address] [place] [address], Phone - [phone], Director - Evie Notes/Report: Glucose 315 70-99 mg/dL BUN 13 6-24 mg/dL Creatinine 0.56 0.57-1.00 mg/dL eGFR 115 >59 mL/min/1.73 BUN/Creatinine Ratio 23 9-23 Sodium 132 134-144 mmol/L Potassium 4.4 3.5-5.2 mmol/L Chloride 100 96-106 mmol/L Carbon Dioxide, Total 20 20-29 mmol/L Calcium 9.0 8.7-10.2 mg/dL Protein, Total 6.5 6.0-8.5 g/dL Albumin 3.7 3.9-4.9 g/dL Globulin, Total 2.8 1.5-4.5 g/dL Bilirubin, Total <0.2 0.0-1.2 mg/dL Alkaline Phosphatase 63 44-121 IU/L AST (SGOT) 13 0-40 IU/L ALT (SGPT) 16 0-32 IU/L Immunoglobulin A, Qn, Serum Reviewed date:12/05/2024 05:14:20 PM Interpretation: Performing Lab:[facility], [address] [place] [address], Phone - [phone], Director - [facility] Notes/Report: Immunoglobulin A, Qn, Serum 252 87-352 mg/dL AMYLASE Reviewed date:12/05/2024 05:14:20 PM Interpretation: Performing Lab:[address], Phone - [phone], Director - [facility] Notes/Report: Amylase 40 31-110 U/L LIPASE Reviewed date:12/05/2024 05:14:20 PM Interpretation: Performing Lab:[address], Phone - [phone], Director - [facility] Notes/Report: Lipase 64 14-72 U/L TISSUE TRANSGLUTAMINASE AB, IGA Reviewed date:12/05/2024 05:14:20 PM Interpretation: Performing Lab:[address], Phone - [phone], Director - [facility] Notes/Report: t-Transglutaminase (tTG) IgA <2 0-3 U/mL Negative 0 - 3 Weak Positive 4 - 10 Positive >10 . Tissue Transglutaminase (tTG) has been identified as the endomysial antigen. Studies have demonstr- ated that endomysial IgA antibodies have over 99% specificity for gluten sensitive enteropathy. Reason For Referral No Information Medications Medication SIG (Take, Route, Frequency, Duration) Notes Start Date End Date Status Adderall XR Active Hyoscyamine Sulfate 0.125 MG 1 tablet Orally every 4 hrs; Duration: 90 days As needed Active Fiber Active Align Active Nortriptyline HCl 25 MG TAKE 1 CAPSULE B Y MOUTH EVERY DAY FOR 30 DAYS; Duration: 90 Active Levothyroxine Sodium Active Cymbalta Active HumaLOG Active OTC/Vitamins Vit D3, MVI, Vit B12 Active Immunizations Vaccine Route Administration Date Status Comme nts Pneumococcal polysaccharide PPV23 Unknown 09/22/2011 Ad ministered Tdap Unknown 09/22/2018 Administered Social History Tobacco Use: Social History Observation Description Date Details (start date - stop date) Former Smoker NA - NA Tobacco Control (Standard) Question Answer Notes Tobacco use: Former smoker How long has it been since you last smoked? 1-5 years Problems Problem Type SNOMED Code ICD Code Onset Dates Problem Status W/U Status Risk Notes Problem Irritable bowel syndrome with diarrhea (842510346) Irritable bowel syndrome with diarrhea (K58.0) Active confirmed Problem Diarrhea (59318243) Diarrhea (R19.7) Active confirmed Episodes of diarrhea which will occur approximately once a week. Differential diagnosis includes bile salt induced diarrhea, irritable bowel syndrome, SIBO, celiac disease, pancreatic insufficiency, and other. Problem Abdominal pain (43984042) Abdominal pain (R10.9) Active confirmed Patient has experienced epigastric pain intermittently for 2 years which is worse after eating. There was no benefit with omeprazole. She has found her symptoms improved with a clear liquid diet. She underwent cholecystectomy. Differential diagnosis includes Nelda to Nelda lithiasis, pancreatitis, small bowel process, gastritis, H. pylori infection, functional etiology, dietary intolerance, celiac disease, gastroparesis, and other. Problem Dysphagia (81795343) Dysphagia (R13.10) Active confirmed Complains of dysphagia with solid food and liquids. Differential diagnosis includes Schatzki's ring, peptic stricture, eosinophilic esophagitis, esophageal motility abnormality and other. Vital Signs Height 69 in 03/01/2025 Weight 209 lbs 03/01/2025 BMI 30.86 kg/m2 03/01/2025 Procedures Procedure Date Ordered Date Performed Result Body Sit e Colonoscopy 11/27/2024 N/A Upper Endoscopy 11/27/2024 N/A Encounters Encounter Location Date Provider Diagnosis [facility] [address] [address] [place] [address] 11/27/2024 Thais Kaiden Abdominal pain R10.9 ; Dysphagia R13.10 and Diarrhea R19.7 [facility] [place] [address] [facility] [address] [place] [address] 12/10/2024 Jus Ramgopal Dysphagia, unspecified R13.10 [facility] [address] [place] [address] 12/27/2024 [facility] Change in bowel habits R19.4 ; Epigastric pain R10.13 and Polyp of colon K63.5 [facility] [address] [facility] [place] [address] [facility] Irritable bowel syndrome with diarrhea K58.0 ; Small intestinal bacterial overgrowth (SIBO) K63.8219 ; Chronic diarrhea K52.9 and Nausea R11.0 [facility] [address] [facility] [place] [address] 11/27/2024 [facility] [address] [facility] [place] [address] 11/27/2024 [facility] [address] [facility] [place] [address] 11/27/2024 [facility] [address] [facility] [place] [address] 12/03/2024 [facility] [address] [facility] [place] [address] 12/04/2024 [facility] [address] [facility] [place] [address] 12/05/2024 [facility] [address] [facility] [place] [address] 12/10/2024 [facility] [address] [facility] [place] [address] 12/10/2024 [facility] [address] [facility] [place] [address] 12/10/2024 [facility] [address] [facility] [place] [address] 12/27/2024 [facility], [facility] [address] [place] [address] 01/15/2025 [facility], [facility] [address] [place] [address] 05/16/2025 [facility] Assessments Encounter Date Diagnosis (ICD Code) Assessment Notes Treatment Notes Treatment Clinical Notes Section Notes 11/27/2024 Abdominal pain (ICD-10 - R10.9) Patient has experienced epigastric pain intermittently for 2 years which is worse after eating. There was no benefit with omeprazole. She has found her symptoms improved with a clear liquid diet. She underwent cholecystectomy. Differential diagnosis includes Nelda to Nelda lithiasis, pancreatitis, small bowel process, gastritis, H. pylori infection, functional etiology, dietary intolerance, celiac disease, gastroparesis, and other. Consider ultrasound versus CT scan pending test results. In the meantime would like for her to schedule upper endoscopy. 11/27/2024 Dysphagia (ICD-10 - R13.10) Complains of dysphagia with solid food and liquids. Differential diagnosis includes Schatzki's ring, peptic stricture, eosinophilic esophagitis, esophageal motility abnormality and other. She was instructed to take small bites, chew carefully and eat slowly. 12/10/2024 Dysphagia, unspecified (ICD-10 - R13.10) 12/27/2024 Epigastric pain (ICD-10 - R10.13) 12/27/2024 Change in bowel habits (ICD-10 - R19.4) 03/01/2025 Irritable bowel syndrome with diarrhea (ICD-10 - K58.0) 1. Nortriptyline 25mg QHS, hyoscyamine prn cramping 2. Rifaximin if above is not effective 3. Avoid artificial sweeteners 4. Can liberalize diet since small particle is not effective 5. Followup in 6 months 03/01/2025 Small intestinal bacterial overgrowth (SIBO) (ICD-10 - K63.8219) 1. Nortriptyline 25mg QHS, hyoscyamine prn cramping 2. Rifaximin if above is not effective 3. Avoid artificial sweeteners 4. Can liberalize diet since small particle is not effective 5. Followup in 6 months 11/27/2024 Diarrhea (ICD-10 - R19.7) Episodes of diarrhea which will occur approximately once a week. Differential diagnosis includes bile salt induced diarrhea, irritable bowel syndrome, SIBO, celiac disease, pancreatic insufficiency, and other. Consume a high-fiber diet with consideration of a fiber supplement. Further recommendations pending above test results. 03/01/2025 Chronic diarrhea (ICD-10 - K52.9) 1. Nortriptyline 25mg QHS, hyoscyamine prn cramping 2. Rifaximin if above is not effective 3. Avoid artificial sweeteners 4. Can liberalize diet since small particle is not effective 5. Followup in 6 months 12/27/2024 Polyp of colon (ICD-10 - K63.5) 03/01/2025 Nausea (ICD-10 - R11.0) 1. Nortriptyline 25mg QHS, hyoscyamine prn cramping 2. Rifaximin if above is not effective 3. Avoid artificial sweeteners 4. Can liberalize diet since small particle is not effective 5. Followup in 6 months Plan Of Treatment Pending Test Test Name Order Date Upper Endoscopy 11/27/2024 Colonoscopy 11/27/2024 Insurance Providers Payer Name Payer Address Payer Phone Subscriber Number Group Number Insured Name Patient Relationship to Insured Coverage Start Date Coverage End Date [address] [place] [address] [phone] [id number] Naty Woodruff Self - patient is the insured Medical (General) History Medical History History ICD Code Colon Polyp IBS GERD Fatty Liver Diabetes Hypothyroidism Surgical History Surgery Date(Month/Year) Colonoscopy 12/2024 EGD 12/2024 Cholecystectomy Dilatation and Curettage Hospitalization History Reason Date(Month/Year) High Risk
--- OUTSIDE RECORDS SUMMARY | 2025-08-12 15:42 | XMS_ITS | Clinical Summary ---
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 before breakfast 20 tablet 9 Active Additional Information Patient taking differently: 88 mcgoral Daily (early AM), Reported on 10/08/2024 rosuvastatin (CRESTOR) 5 mg tablet 1 tablet (5 mg total) 5 Active ergocalciferol (VITAMIN D) 50,000 unit capsule Take 1 capsule (50,000 Units total) by mouth once a week [address] (CYMBALTA) 30 mg capsule 1 capsule (30 mg total) 5 Active insulin aspart (NovoLOG) 100 unit/mL (3 mL) pen for injection INJECT 6 UNITS UNDER THE SKIN 3 TIMES DAILY BEFORE MEALS 5 Active BASAGLAR 100 unit/mL (3 mL) pen for injection Inject 46 Units under the skin daily 4 Active calcium carbonate (TUMS ORAL) Take by mouth Active Active Problems No known active problems Surgical History Surgery Date Site/Laterality Comments CHOLECYSTECTOMY Medical History Medical History Date Comments DM (diabetes mellitus) Hypothyroidism 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 Family History Medical History Relation Name Comments No Known Problems Father No Known Problems Mother Relation Name Status Comments Father Mother Social History Tobacco Use Types Packs/Day Years Used Date Smoking Tobacco: Former Cigarettes Tobacco Cessation:Counseling Given: Not Answered Alcohol Use Standard Drinks/Week Comments Yes 0 (1 standard drink = 0.6 oz pur e alcohol) Socially Comments Unknown Sex and Gender Information Value Date Recorded Sex Assigned at Not on file Legal Sex Female 3:12 AM [employer] Gender Identity Not on file Sexual Orientation Not on file Last Filed Vital Signs Vital Sign Reading Time Taken Comments Blood Pressure 124/76 10/08/2024 9:32 AM [employer] Pulse 91 10/08/2024 9:32 AM [employer] Temperature 36.4 C (97.5 F) 08/11/2019 3:54 PM [employer] Respiratory Rate 16 08/11/2019 3:54 PM [employer] Oxygen Saturation 98% 10/08/2024 9:32 AM [employer] Inhaled Oxygen Concentration - - Weight 93.7 kg (206 lb 9.6 oz) 10/08/2024 9:32 A M [employer] Height 175.3 cm (5' 9) 10/08/2024 9:32 AM [employer] Body Mass Index 30.51 10/08/2024 9:32 AM [employer] Plan of Treatment Health Maintenance Due Date Last Done Comments Breast Cancer Screening-Mammogram 1980 Cervical Cancer Screening 1980 Colon Cancer Screening-Colonoscopy 1980 Depression Screening 1980 Hepatitis C Screening 1980 Varicella Vaccines (1 of 2 - 13+ 2-dose series) 1993 Hepatitis B Screening 1998 Regular Well Visit/Exam 18-64 1998 HPV Vaccines (1 - 3-dose SCD M series) 2007 DTaP/Tdap/Td Vaccine (2 - Td or Tdap) 07/18/2022 07/18/2012 Covid-19 Vaccine (3 - 2024-2 6 season) 2025 08/16/2021, 06/22/2021 Influenza Vaccine (#1) 2025 07/12/2012 Pneumococcal vaccine <65 Aged Out 07/19/2012 No longer eligible based on patient's age to complete this topic Insurance Care Teams Research & Analytics Manager Relationship Specialty Start Date End Date Kendra Thurston MD PCP - General Family Medicine 03/09/24
== END 2025-08-12 13:54 | disposition home or self-care (01) ==
PROVIDERS: PCP Student in an Organized Health Care Education/Training Program; Visit Provider Physician Assistant Surgical
DX: M79.641 Pain in right hand (principal)
CPT/HCPCS: 73130